=== PATIENT | male | born 1960 | race Hispanic/Latino ===

== ENCOUNTER 2017-11-07 07:52 | Day surgery (SDC) | payer MEDICARE ==
[2017-11-03 12:06] VITALS: BP 157/83
[2017-11-03 12:14] LABS: EOSINOPHILS % (AUTO) 3.6 % (0.0-8.0); HEMATOCRIT 40.8 % (42-54); LYMPHOCYTES % (AUTO) 27.6 % (21.0-51.0); MEAN CORPUSCULAR HEMOGLOBIN 32.8 pg (27.0-33.0); MEAN CORPUSCULAR HGB CONC 33.8 g/dL (32.0-36.0); MEAN CORPUSCULAR VOLUME 96.9 fL (79-99); MONOCYTES % (AUTO) 7.1 % (3.0-13.0); NEUTROPHILS % (AUTO) 60.7 % (40.0-77.0); NUCLEATED RED BLOOD CELLS 0.1 % (0.0-0.19); PLATELET COUNT (AUTO) 283 K/uL (130-400); RED BLOOD CELL COUNT(AUTO) 4.21 MIL/uL (4.50-6.20); RED CELL DISTRIBUTION WIDTH 14.1 % (11.0-15.5); WHITE BLOOD COUNT (AUTO) 7.8 K/uL (4.8-10.8)
[2017-11-03 12:20] LABS: INR 1.02 (0.85-1.15); PROTHROMBIN TIME 10.7 SEC (9.6-11.6)
[2017-11-03 12:23] LABS: CREATININE 1.1 mg/dL (0.5-1.5); POTASSIUM 4.5 mmol/L (3.5-5.1)
[2017-11-07] VITALS (13 sets, daily range): BP systolic 102–138; BP diastolic 61–80
[~2017-11-07] VITALS: Ht 190.5 cm; Wt 113.9 kg
[~2017-11-07 07:52] MED LIST: BUPR300T54 PO; BUSP15TA3 PO; CLON0.1T PO; DIGO250T PO; LISI-617 PO; METO25 PO; RIVA20TA PO
[2017-11-07] MEDS ORDERED: SODIUM CHLORIDE 0.9% 1000ML 1,000 ML IV SCH (08:00)
[2017-11-07] MEDS ORDERED: BUPIVACAINE/PF 0.25% 30ML VIAL IJ ONE (10:46)
[2017-11-07] MEDS ORDERED: CEFAZOLIN 1GM / D5W 50ML 150 ML ONE (10:46)
[2017-11-07] MEDS ORDERED: LIDOCAINE HCL 1% MDV 50ML VIAL ONE (10:46)
[2017-11-07] MEDS ORDERED: ACETAMINOPHEN 325 MG TAB PO PRN (12:15)
[2017-11-07] MEDS ORDERED: LEVO500T2 PO (12:19)
[2017-11-07] MEDS ORDERED: CEFAZOLIN SODIUM 1 GM VIAL IVP ONE (19:00)
[2017-11-07] MEDS ORDERED: CEFAZOLIN 1GM / D5W 50ML 50 ML IV SCH (19:30)
== END 2017-11-07 19:44 | disposition home or self-care (01) ==
LOC: DAH 07:52
PROVIDERS: ATTEND Internal Medicine Cardiovascular Disease
DX: I49.5 Sick sinus syndrome (principal); Z68.31 Body mass index [BMI] 31.0-31.9, adult; I11.9 Hypertensive heart disease without heart failure; F41.9 Anxiety disorder, unspecified; E78.5 Hyperlipidemia, unspecified; Z90.49 Acquired absence of other specified parts of digestive tract; Z98.890 Other specified postprocedural states; Z85.028 Personal history of other malignant neoplasm of stomach; Z95.0 Presence of cardiac pacemaker; Z79.01 Long term (current) use of anticoagulants
CPT/HCPCS: 33228; 36415; 80048; 85025; 85610; 85730; 93005; A4218; A4606; C1785; J0690 ×2; J3490 ×2; J7030